=== PATIENT | female | born 1945 | race Caucasian/White ===

== ENCOUNTER 2019-09-26 13:54 | Inpatient (IN) | payer OTHER, MEDICAID ==
[~2019-09-26] VITALS: Ht 167.6 cm; Wt 129.3 kg
[2019-09-26 13:54] VITALS: BP_SYST 112
[2019-09-26] MEDS ORDERED: DOCU250C14 PO (14:17)
[2019-09-26] MEDS ORDERED: MULT-1089 PO (14:17)
[2019-09-26] MEDS ORDERED: LEVO150T PO (14:17)
[2019-09-26] MEDS ORDERED: BISA5TAB10 PO (14:17)
[2019-09-26] MEDS ORDERED: PRO40 PO (14:17)
[2019-09-26] MEDS ORDERED: DEXT30DR6 EACH EYE (14:17)
[2019-09-26] MEDS ORDERED: FOLI-43 PO (14:17)
[2019-09-26] MEDS ORDERED: OSCD500 PO (14:17)
[2019-09-26] MEDS ORDERED: PROT54LI PO (14:17)
[2019-09-26] MEDS ORDERED: LISI10TA5 PO (14:17)
[2019-09-26] MEDS ORDERED: Maalox PO (14:17)
[2019-09-26] MEDS ORDERED: TRAV2.5D BOTH EYES (14:17)
[2019-09-26] MEDS ORDERED: TRAV2.5D OP (14:17)
[2019-09-26] MEDS ORDERED: ONDA4TAB5 PO (14:17)
[2019-09-26] MEDS ORDERED: ALPHAGANP EACH EYE (14:17)
[2019-09-26] MEDS ORDERED: [UNRECOGNIZED DRUG - CODE] PO (14:17)
[2019-09-26] MEDS ORDERED: NACL 0.9% 1,000 ML IV ONE (14:45)
[2019-09-26] MEDS ORDERED: ONDANSETRON HCL 4 MG/2 ML VIAL IVP ONE (14:45)
[2019-09-26 15:07] LABS: BASOPHILS # (AUTO) 0.2 K/uL (0.0-0.2); BASOPHILS % (AUTO) 1.3 % (0.0-2.0); EOSINOPHILS # (AUTO) 0.1 K/uL (0.0-0.4); EOSINOPHILS % (AUTO) 1.3 % (0.0-4.0); HEMATOCRIT 37.9 % (36-48); HEMOGLOBIN 12.3 g/dL (12.0-16.0); LYMPHOCYTES # (AUTO) 3.2 K/uL (1.0-5.5); LYMPHOCYTES % (AUTO) 27.3 % (20.5-51.5); MEAN CORPUSCULAR HEMOGLOBIN 25 pg (27-31); MEAN CORPUSCULAR HGB CONC 33 % (32-36); MEAN CORPUSCULAR VOLUME 77 fL (79.0-98.0); MONOCYTES # (AUTO) 0.7 K/uL (0.0-1.0); MONOCYTES % (AUTO) 5.9 % (1.7-9.3); NEUTROPHILS # (AUTO) 7.6 K/uL (1.8-7.7); NEUTROPHILS % (AUTO) 64.2 % (40.0-70.0); PLATELET COUNT (AUTO) 526 K/uL (130-430); RED BLOOD CELL COUNT(AUTO) 4.95 MIL/uL (4.2-6.2); RED CELL DISTRIBUTION WIDTH 17.2 % (9.0-15.0); WHITE BLOOD COUNT (AUTO) 11.9 K/uL (4.8-10.8)
[2019-09-26 15:38] LABS: ANION GAP 8 (5-15); CALCIUM 9.3 mg/dL (8.4-11.0); CHLORIDE 98 mmol/L (98-107); CREATININE 0.88 mg/dL (0.55-1.30); GLUCOSE 100 mg/dL (70-99); POTASSIUM 4.6 mmol/L (3.5-5.1); SODIUM SERUM 136 mmol/L (136-145); UREA NITROGEN, BLOOD 18 mg/dL (8-21)
[2019-09-26 15:46] LABS: ALANINE AMINOTRANSFERASE 29 U/L (12-78); ALBUMIN 3.6 g/dL (3.4-4.8); ASPARTATE AMINOTRANSFERASE 24 U/L (10-37); LIPASE 114 U/L (73-393); TOTAL BILIRUBIN 0.5 mg/dL (0.0-1.0)
[2019-09-26] MEDS ORDERED: FLU VACC TS2019(65UP)/MF59C/PF 45 MCG/0.5 ML SYRINGE I.M. PRN (16:45)
[2019-09-26] MEDS ORDERED: ACETAMINOPHEN 325 MG TABLET PO ONE (18:30)
[2019-09-26] MEDS ORDERED: CALCIUM CARBONATE/VITAMIN D3 1 TAB TABLET PO PRN (20:45)
[2019-09-26] MEDS ORDERED: LEVOTHYROXINE SODIUM 0.15 MG TABLET PO SCH (20:45)
[2019-09-26] MEDS ORDERED: BISACODYL 5 MG TABLET.DR (DULCOLAX) PO PRN (20:45)
[2019-09-26] MEDS ORDERED: BRIMONIDINE TARTRATE 0.15% 5 mL EYE DROPS EACH EYE SCH (21:00)
[2019-09-26] MEDS: PANTOPRAZOLE SODIUM 40 MG/VIAL (PROTONIX) IVP SCH (21:00)
[2019-09-26] MEDS: ACETAMINOPHEN 325 MG TABLET PO PRN (22:59)
[2019-09-26] MEDS: LISINOPRIL 10 MG TABLET (PRINIVIL) PO SCH (23:04)
[2019-09-26] MEDS: ONDANSETRON HCL 4 MG/2 ML VIAL IVP PRN (23:28)
[2019-09-26] MEDS: KCL 20 mEq in D5/0.45NS 1000mL 1,000 ML IV SCH (23:32)
[2019-09-26] MEDS ORDERED: KCL 20 mEq in D5/0.45NS 1000mL 1,000 ML IV ONE (23:37)
[2019-09-27 00:18] VITALS: BP_SYST 154
[2019-09-27] MEDS: ACETAMINOPHEN 325 MG TABLET PO PRN ×2 (05:51→18:04)
[2019-09-27] MEDS: LEVOTHYROXINE SODIUM 0.15 MG TABLET PO SCH (06:13)
[2019-09-27] MEDS: ONDANSETRON HCL 4 MG/2 ML VIAL IVP PRN ×3 (06:21→22:45)
[2019-09-27 07:00] VITALS: BP_SYST 140
[2019-09-27] MEDS ORDERED: MAG-AL HYDROX/SIMETH 30 ML UDC PO PRN (08:15)
[2019-09-27] MEDS: PEG 400/HYPROMELLOSE/GLYCERIN 15 ML DROPS EACH EYE SCH ×4 (09:00→20:12)
[2019-09-27] MEDS: ENOXAPARIN SODIUM 40 MG/0.4 ML SYRINGE SUBCUT SCH (09:00)
[2019-09-27] MEDS ORDERED: PROTEIN HYDROLYSATE MILK PO SCH (09:00)
[2019-09-27] MEDS: DOCUSATE SODIUM 250 MG CAPSULE PO SCH (09:00)
[2019-09-27] MEDS: BRIMONIDINE TARTRATE 0.2% 5 mL EYE DROPS BOTH EYES SCH ×3 (09:00→20:11)
[2019-09-27] MEDS: PANTOPRAZOLE SODIUM 40 MG/VIAL (PROTONIX) IVP SCH ×2 (09:00→20:07)
[2019-09-27] MEDS: THIAMINE HCL 100 MG TABLET PO SCH (09:00)
[2019-09-27] MEDS ORDERED: TRAVOPROST 0.004% 2.5 ML EYE DROPS OP SCH (09:00)
[2019-09-27] MEDS: MULTIVITAMINS TAB 1 TABLET PO SCH (09:00)
[2019-09-27] MEDS: FOLIC ACID 1 MG TABLET PO SCH (09:00)
[2019-09-27] MEDS: LISINOPRIL 10 MG TABLET (PRINIVIL) PO SCH ×2 (09:00→20:08)
[2019-09-27] MEDS ORDERED: SIMETHICONE 40 MG/0.6 ML ML ONE (09:20)
[2019-09-27] MEDS: fentaNYL CITRATE/PF 100 MCG/2 ML AMP ONE ×2 (09:47→09:53)
[2019-09-27] MEDS: MIDAZOLAM HCL 5 MG/5 ML VIAL ONE ×3 (09:47→09:55)
[2019-09-27] MEDS ORDERED: MIDAZOLAM HCL 5 MG/5 ML VIAL ONE (09:56)
[2019-09-27] MEDS ORDERED: MEPERIDINE HCL/PF 100 MG/ML AMP ONE (09:56)
[2019-09-27] MEDS: KCL 20 mEq in D5/0.45NS 1000mL 1,000 ML IV SCH ×2 (10:20→22:47)
[2019-09-27 11:15] VITALS: BP_SYST 152
[2019-09-27 16:00] VITALS: BP_SYST 140
[2019-09-27 20:00] VITALS: BP_SYST 163
[2019-09-27] MEDS: POLYETHYLENE GLYCOL 3350, 17 GM/ POWD.PACK PO SCH (20:07)
[2019-09-27] MEDS ORDERED: LATANOPROST 2.5 ML DROPS (XALATAN) BOTH EYES SCH (21:00)
[2019-09-28] MEDS: ACETAMINOPHEN 325 MG TABLET PO PRN ×2 (00:09→06:01)
[2019-09-28 00:45] VITALS: BP_SYST 130
[2019-09-28] MEDS: LEVOTHYROXINE SODIUM 0.15 MG TABLET PO SCH (06:00)
[2019-09-28] MEDS: ONDANSETRON HCL 4 MG/2 ML VIAL IVP PRN ×2 (06:05→13:11)
[2019-09-28 07:22] LABS: BASOPHILS # (AUTO) 0.1 K/uL (0.0-0.2); BASOPHILS % (AUTO) 0.9 % (0.0-2.0); EOSINOPHILS # (AUTO) 0.2 K/uL (0.0-0.4); EOSINOPHILS % (AUTO) 2.4 % (0.0-4.0); HEMATOCRIT 35.4 % (36-48); HEMOGLOBIN 11.5 g/dL (12.0-16.0); LYMPHOCYTES # (AUTO) 2.9 K/uL (1.0-5.5); MEAN CORPUSCULAR HEMOGLOBIN 25 pg (27-31); MEAN CORPUSCULAR HGB CONC 32 % (32-36); MEAN CORPUSCULAR VOLUME 77 fL (79.0-98.0); MONOCYTES # (AUTO) 0.6 K/uL (0.0-1.0); MONOCYTES % (AUTO) 7.4 % (1.7-9.3); NEUTROPHILS # (AUTO) 4.5 K/uL (1.8-7.7); NEUTROPHILS % (AUTO) 54.3 % (40.0-70.0); PLATELET COUNT (AUTO) 439 K/uL (130-430); RED BLOOD CELL COUNT(AUTO) 4.59 MIL/uL (4.2-6.2); RED CELL DISTRIBUTION WIDTH 17.2 % (9.0-15.0); WHITE BLOOD COUNT (AUTO) 8.4 K/uL (4.8-10.8)
[2019-09-28 07:28] LABS: ANION GAP 5 (5-15); CALCIUM 8.4 mg/dL (8.4-11.0); CHLORIDE 102 mmol/L (98-107); CREATININE 0.74 mg/dL (0.55-1.30); GLUCOSE 112 mg/dL (70-99); POTASSIUM 4.3 mmol/L (3.5-5.1); SODIUM SERUM 135 mmol/L (136-145); UREA NITROGEN, BLOOD 13 mg/dL (8-21)
[2019-09-28 08:05] VITALS: BP_SYST 172
[2019-09-28] MEDS ORDERED: BISACODYL 5 MG TABLET.DR (DULCOLAX) PO PRN (08:30)
[2019-09-28] MEDS: MAGNESIUM CITRATE 300 ML ORAL SOLUTION PO ONE ×2 (08:30→08:36)
[2019-09-28] MEDS: ENOXAPARIN SODIUM 40 MG/0.4 ML SYRINGE SUBCUT SCH (08:34)
[2019-09-28] MEDS: MULTIVITAMINS TAB 1 TABLET PO SCH (08:36)
[2019-09-28] MEDS: FOLIC ACID 1 MG TABLET PO SCH (08:37)
[2019-09-28] MEDS: PANTOPRAZOLE SODIUM 40 MG/VIAL (PROTONIX) IVP SCH (08:37)
[2019-09-28] MEDS: THIAMINE HCL 100 MG TABLET PO SCH (08:37)
[2019-09-28] MEDS: DOCUSATE SODIUM 250 MG CAPSULE PO SCH (08:37)
[2019-09-28] MEDS: PEG 400/HYPROMELLOSE/GLYCERIN 15 ML DROPS EACH EYE SCH ×3 (08:37→17:24)
[2019-09-28] MEDS: BRIMONIDINE TARTRATE 0.2% 5 mL EYE DROPS BOTH EYES SCH ×2 (08:37→14:30)
[2019-09-28] MEDS: POLYETHYLENE GLYCOL 3350, 17 GM/ POWD.PACK PO SCH (08:38)
[2019-09-28] MEDS: LISINOPRIL 10 MG TABLET (PRINIVIL) PO SCH ×2 (08:38→19:40)
[2019-09-28] MEDS: KCL 20 mEq in D5/0.45NS 1000mL 1,000 ML IV SCH (10:25)
[2019-09-28] MEDS: ACETAMINOPHEN 500 MG TABLET PO PRN ×2 (10:25→14:30)
[2019-09-28 11:20] VITALS: BP_SYST 129
[2019-09-28 15:46] VITALS: BP_SYST 149
[2019-09-28 15:58] VITALS: BP_SYST 149
[2019-09-28] MEDS ORDERED: cloNIDine HCL 0.1 MG TABLET PO SCH (18:45)
== END 2019-09-28 20:00 | DRG 392 ==
LOC: SED 13:54 → SMU 15:33
PROVIDERS: ADMIT Family Medicine; ATTEND Family Medicine
PROC: 0DB78ZX Excision of Stomach, Pylorus, Via Natural or Artificial Opening Endoscopic, Diagnostic (ICD-10-PCS; principal; 2019-09-27 09:30)
DX: K29.00 Acute gastritis without bleeding (principal); K44.9 Diaphragmatic hernia without obstruction or gangrene; K59.00 Constipation, unspecified; E03.9 Hypothyroidism, unspecified; F31.9 Bipolar disorder, unspecified; G89.29 Other chronic pain; I10 Essential (primary) hypertension; K59.09 Other constipation; F41.9 Anxiety disorder, unspecified; Z53.29 Procedure and treatment not carried out because of patient's decision for other reasons; K21.9 Gastro-esophageal reflux disease without esophagitis; K80.20 Calculus of gallbladder without cholecystitis without obstruction; Z79.899 Other long term (current) drug therapy
CPT/HCPCS: 36415; 43239; 71045; 74018; 76700-TC; 80048; 80053; 82550-TC; 83690-TC; 83735-TC; 84484; 85025; 87081; 88305; 88312; 88313; 93005; 96361; 96374; 99285; C9113; J1650; J2175; J2250; J2405; J3010; J7030

== ENCOUNTER 2019-11-09 19:49 | Emergency (ER) | payer OTHER, MEDICAID ==
[~2019-11-09] VITALS: Ht 167.6 cm; Wt 90.7 kg
[~2019-11-09 19:49] MED LIST: ALPHAGANP EACH EYE; BISA5TAB10 PO; DEXT30DR6 EACH EYE; DOCU250C14 PO; FOLI-43 PO; LEVO150T PO; LISI10TA5 PO; MULT-1089 PO; Maalox PO; ONDA4TAB5 PO; OSCD500 PO; PRO40 PO; PROT54LI PO; TRAV2.5D BOTH EYES; TRAV2.5D OP; [UNRECOGNIZED DRUG - CODE] PO
[2019-11-09 19:52] VITALS: BP_SYST 164
[2019-11-09] MEDS ORDERED: ONDANSETRON HCL 4 MG/2 ML VIAL IVP ONE (20:30)
[2019-11-09 21:09] LABS: BASOPHILS # (AUTO) 0.1 K/uL (0.0-0.2); BASOPHILS % (AUTO) 0.9 % (0.0-2.0); EOSINOPHILS # (AUTO) 0.1 K/uL (0.0-0.4); HEMATOCRIT 39.8 % (36-48); HEMOGLOBIN 12.9 g/dL (12.0-16.0); LYMPHOCYTES # (AUTO) 2.7 K/uL (1.0-5.5); LYMPHOCYTES % (AUTO) 24.9 % (20.5-51.5); MEAN CORPUSCULAR HEMOGLOBIN 25 pg (27-31); MEAN CORPUSCULAR HGB CONC 33 % (32-36); MEAN CORPUSCULAR VOLUME 76 fL (79.0-98.0); MONOCYTES # (AUTO) 0.8 K/uL (0.0-1.0); MONOCYTES % (AUTO) 7.3 % (1.7-9.3); NEUTROPHILS # (AUTO) 7.1 K/uL (1.8-7.7); NEUTROPHILS % (AUTO) 65.9 % (40.0-70.0); PLATELET COUNT (AUTO) 467 K/uL (130-430); RED BLOOD CELL COUNT(AUTO) 5.24 MIL/uL (4.2-6.2); RED CELL DISTRIBUTION WIDTH 17.3 % (9.0-15.0); WHITE BLOOD COUNT (AUTO) 10.8 K/uL (4.8-10.8)
[2019-11-09 21:16] LABS: BILIRUBIN,URINE NEGATIVE (NEGATIVE); BLOOD, URINE 2+ (NEGATIVE); CLARITY/URINE CLEAR (CLEAR); COLOR,URINE YELLOW (YELLOW); GLUCOSE,URINE NEGATIVE (NEGATIVE); KETONES,URINE NEGATIVE (NEGATIVE); LEUKOCYTE ESTERASE ,URINE 1+ (NEGATIVE); NITRITE, URINE NEGATIVE (NEGATIVE); PH,URINE 5.5 (5.0-8.0); PROTEIN URINE NEGATIVE (NEGATIVE); UROBILINOGEN,URINE 0.2 (0.2-1.0)
[2019-11-09 21:24] LABS: ANION GAP 9 (5-15); CALCIUM 9.2 mg/dL (8.4-11.0); CHLORIDE 98 mmol/L (98-107); CREATININE 0.75 mg/dL (0.55-1.30); GLUCOSE 119 mg/dL (70-99); POTASSIUM 4.4 mmol/L (3.5-5.1); SODIUM SERUM 132 mmol/L (136-145); UREA NITROGEN, BLOOD 13 mg/dL (8-21)
[2019-11-09 21:29] LABS: ALANINE AMINOTRANSFERASE 27 U/L (12-78); ALBUMIN 3.5 g/dL (3.4-4.8); ASPARTATE AMINOTRANSFERASE 15 U/L (10-37); LIPASE 132 U/L (73-393); TOTAL BILIRUBIN 0.3 mg/dL (0.0-1.0)
[2019-11-09 21:54] LABS: BACTERIA,URINE MODERATE /HPF (None Seen); RBC,URINE 0-3 /HPF (0-3)
[2019-11-09] MEDS ORDERED: NITROFURANTOIN MONOHYD/M-CRYST 100 MG CAPSULE PO ONE (22:15)
[2019-11-09 23:40] VITALS: BP_SYST 157
== END 2019-11-09 23:40 | disposition home or self-care (01) ==
LOC: SED 19:49
DX: N39.0 Urinary tract infection, site not specified (principal); R10.31 Right lower quadrant pain; R11.0 Nausea; K21.9 Gastro-esophageal reflux disease without esophagitis; I10 Essential (primary) hypertension; E07.9 Disorder of thyroid, unspecified; G47.00 Insomnia, unspecified; Z86.2 Personal history of diseases of the blood and blood-forming organs and certain disorders involving the immune mechanism; Z79.899 Other long term (current) drug therapy
CPT/HCPCS: 36415; 71045; 74176; 80053; 81000; 83605; 83690; 85025; 87040; 87086; 93005; 96374; 99285; J2405